=== PATIENT | female | born 1975 | race Caucasian/White ===

== ENCOUNTER 2020-01-03 16:41 | Inpatient (IN) | payer OTHER ==
[~2020-01-03] VITALS: Ht 167.6 cm; Wt 73.0 kg
[2020-01-03 16:49] VITALS: Ht 167.6 cm; Wt 73.0 kg
[2020-01-03 17:39] LABS: ALBUMIN 2.8 g/dL (3.4-5.0); ALKALINE PHOSPHATASE 31 U/L (46-116); ALT/SGPT 9 U/L (14-59); AST/SGOT 11 U/L (15-37); BILIRUBIN TOTAL 0.9 mg/dL (0.20-1.00); CALCIUM 7.5 mg/dL (8.5-10.1); CARBON DIOXIDE 22.2 mmol/L (21-32); CHLORIDE SERUM 100 mmol/L (98-107); CREATININE SERUM 0.7 mg/dL (0.6-1.0); GFR1 > 60 mL/min; GLUCOSE SERUM 106 mg/dL (74-106); SODIUM SERUM 133 mmol/L (136-145); TOTAL PROTEIN, SERUM 5.1 g/dL (6.4-8.2)
[2020-01-03 17:49] LABS: BASOPHIL % 0.1 % (0-2); PLATELET COUNT 228 x10^3mcL (130-400)
[2020-01-03 17:53] LABS: RED CELL DISTRIBUTION WIDTH 19.1 % (11.5-14.5)
[2020-01-03] MEDS ORDERED: ATI0.5 PO (18:27)
[2020-01-03 18:34] LABS: rbc morphology (normal/abnorm) ABNORMAL (NORMAL)
[2020-01-03 22:53] VITALS: BP 117/65
[2020-01-04] VITALS (7 sets, daily range): BP systolic 88–108; BP diastolic 50–66
[2020-01-04 01:15] LABS: BASOPHIL % 0.4 % (0-2); PLATELET COUNT 181 x10^3mcL (130-400)
[2020-01-04 01:35] LABS: RED CELL DISTRIBUTION WIDTH 20.8 % (11.5-14.5)
[2020-01-04 01:40] LABS: rbc morphology (normal/abnorm) ABNORMAL (NORMAL)
[2020-01-04 06:46] LABS: BASOPHIL % 0.4 % (0-2); PLATELET COUNT 170 x10^3mcL (130-400)
[2020-01-04 07:07] LABS: RED CELL DISTRIBUTION WIDTH 21.5 % (11.5-14.5)
[2020-01-04 07:09] LABS: ALKALINE PHOSPHATASE 29 U/L (46-116); ALT/SGPT 8 U/L (14-59); AST/SGOT 8 U/L (15-37); BILIRUBIN TOTAL 1.7 mg/dL (0.20-1.00); CALCIUM 7.3 mg/dL (8.5-10.1); CARBON DIOXIDE 25.6 mmol/L (21-32); CHLORIDE SERUM 104 mmol/L (98-107); CREATININE SERUM 0.8 mg/dL (0.6-1.0); GFR1 > 60 mL/min; GLUCOSE SERUM 99 mg/dL (74-106); MAGNESIUM 2.1 mg/dL (1.8-2.4); POTASSIUM SERUM 3.9 mmol/L (3.5-5.1); SODIUM SERUM 136 mmol/L (136-145); TRIGLYCERIDES 137 mg/dL (<150)
[2020-01-04 07:10] LABS: ALBUMIN 2.5 g/dL (3.4-5.0); CHOLESTEROL 95 mg/dL (<200); CHOLESTEROL/HDL RATIO 3.4; HDL CHOLESTEROL 28 mg/dL (40-60); TOTAL PROTEIN, SERUM 4.6 g/dL (6.4-8.2)
[2020-01-04 07:14] LABS: rbc morphology (normal/abnorm) ABNORMAL (NORMAL)
[2020-01-04 20:23] LABS: BASOPHIL % 0.8 % (0-2); PLATELET COUNT 151 x10^3mcL (130-400)
[2020-01-04 20:39] LABS: RED CELL DISTRIBUTION WIDTH 19.6 % (11.5-14.5)
[2020-01-05 05:05] VITALS: BP 102/67
[2020-01-05 07:18] LABS: BASOPHIL % 0.4 % (0-2); PLATELET COUNT 135 x10^3mcL (130-400)
[2020-01-05 07:32] LABS: RED CELL DISTRIBUTION WIDTH 20.1 % (11.5-14.5)
[2020-01-05 07:38] LABS: ALKALINE PHOSPHATASE 28 U/L (46-116); ALT/SGPT 9 U/L (14-59); AST/SGOT 10 U/L (15-37); BILIRUBIN TOTAL 0.9 mg/dL (0.20-1.00); CALCIUM 7.3 mg/dL (8.5-10.1); CARBON DIOXIDE 27.1 mmol/L (21-32); CHLORIDE SERUM 106 mmol/L (98-107); CREATININE SERUM 0.7 mg/dL (0.6-1.0); GFR1 > 60 mL/min; GLUCOSE SERUM 93 mg/dL (74-106); MAGNESIUM 2.2 mg/dL (1.8-2.4); SODIUM SERUM 135 mmol/L (136-145)
[2020-01-05 07:44] LABS: ALBUMIN 2.5 g/dL (3.4-5.0); TOTAL PROTEIN, SERUM 4.7 g/dL (6.4-8.2)
[2020-01-05 09:53] VITALS: BP 109/63
[2020-01-05 13:05] VITALS: BP 138/81
[2020-01-05] MEDS ORDERED: PROVERA10 MG PO (23:21)
== END 2020-01-05 13:33 | disposition left against medical advice (07) | DRG 760 ==
LOC: EDSEX 16:41 → ED 16:41 → DU 18:07 → IC 18:07 → DU 22:52
PROVIDERS: Emergency Medicine; Internal Medicine Pulmonary Disease; ADMIT Hospitalist; ATTEND Hospitalist
PROC: 30233N1 Transfusion of Nonautologous Red Blood Cells into Peripheral Vein, Percutaneous Approach (ICD-10-PCS; principal; 2020-01-03)
DX: N93.9 Abnormal uterine and vaginal bleeding, unspecified (principal); D62 Acute posthemorrhagic anemia; N92.0 Excessive and frequent menstruation with regular cycle; K21.9 Gastro-esophageal reflux disease without esophagitis; F41.9 Anxiety disorder, unspecified; F32.9 Major depressive disorder, single episode, unspecified; Z20.828 Contact with and (suspected) exposure to other viral communicable diseases; Z88.8 Allergy status to other drugs, medicaments and biological substances; Z79.899 Other long term (current) drug therapy
CPT/HCPCS: G0378; J0610; J7030; J7040; J7050; P9016; Q0092